=== PATIENT | male | born 1955 | race Caucasian/White ===

== ENCOUNTER → 2017-08-06 | Outpatient (CLI) | payer MEDICARE, OTHER ==
[2017-08-06 15:06] LABS: ANION GAP 8 MEQ/L (5-15); BICARBONATE 27.8 MEQ/L (21.0-32.0); BLOOD UREA NITROGEN 23 MG/DL (7-18); CALCIUM 8.5 MG/DL (8.5-10.1); CHLORIDE 100 MEQ/L (98-107); CREATININE 1.27 MG/DL (0.60-1.30); GLOMERULAR FILTRATION RATE 57 ML/MIN (>89); GLUCOSE,FASTING 129 MG/DL (74-99); POTASSIUM 4.3 MEQ/L (3.5-5.1); SODIUM (NA) 136 MEQ/L (136-145)
== END ==
LOC: CLAB 13:59
DX: N40.1 Benign prostatic hyperplasia with lower urinary tract symptoms (principal)
CPT/HCPCS: 36415; 80048; 84153

== ENCOUNTER → 2017-09-28 | Outpatient (CLI) | payer MEDICARE ==
[~2017-09-28] MED LIST: ACET-822 PO; ASPI81TA23 PO; LISI10TA3 PO
[2017-09-28 10:38] LABS: HEMATOCRIT 43.1 % (39.0-51.0); HEMOGLOBIN 15.3 GM/DL (13.0-17.0); MEAN CORPUSCULAR HEMOGLOBIN 34.7 PG (27.0-34.0); MEAN CORPUSCULAR HGB CONC 35.4 % (32.0-36.0); MEAN PLATELET VOLUME 7.6 FL (7.0-11.0); PLATELET COUNT 302 TH/MM3 (150-450); RED CELL DISTRIBUTION WIDTH 14.2 % (11.6-17.2); WHITE BLOOD COUNT 8.8 TH/MM3 (4.0-11.0)
[2017-09-28 10:47] LABS: PROTHROMBIN TIME - PATIENT 10.1 SEC (9.8-11.6)
== END ==
LOC: CLAB 10:07
PROVIDERS: ATTEND Urology
DX: D41.00 Neoplasm of uncertain behavior of unspecified kidney (principal)
CPT/HCPCS: 36415; 85027; 85610; 85730

== ENCOUNTER 2017-10-04 06:23 | Day surgery (SDC) | payer MEDICARE ==
[~2017-10-04] VITALS: Ht 180.3 cm; Wt 127.3 kg
[2017-10-04] VITALS (8 sets, daily range): BP systolic 105–144; BP diastolic 74–95; PULSE 75–83; RESP 18–20; TEMP 98–98.5; O2SAT 92–99
[2017-10-04] MEDS ORDERED: SODIUM CHLOR 0.9% 1000 ML IV SCH (06:45)
[2017-10-04] MEDS ORDERED: MIDAZOLAM HCL 2 MG/2 ML VIAL ONE ×2 (08:02→08:48)
--- NOTE | 2017-10-04 09:45 | PD.RAD ---
Post CT Procedure Prog Note Pre Procedure Diagnosis: (1) Left renal mass Post Procedure Diagnosis: (1) Left renal mass Procedure Date: Oct 04, 2017 Supervising Radiologist: Shant Hampton Estimated blood loss: none Anesthesia: Local, Conscious Sedation Plan of Activity Patient to Unit: ROPU Patient Condition: Good See PACS Report for procedural detail/treatment Biopsy Imaging Guidance: CT Side: Left Biopsy Procedure: Kidney Specimen: Core Biopsy Shant Hampton MD Oct 04, 2017 09:45
--- NOTE | 2017-10-04 10:17 | RADRPT ---
EXAM DATE/TIME: 10/04/2017 08:42 [facility] COMPARISON: No previous studies available for comparison. INDICATIONS : Left retroperitoneal mass. Hypermetabolic mass in the left renal fossa post previous left nephrectomy for renal cell carcinoma SEDATION TIME: 40 minutes BIOPSY SITE: Left renal fossa MEDICATION(S): 1.) 3.5 mg midazolam (Versed) IV 2.) 175 mcg fentanyl (Sublimaze) IV 1.) 18 gauge Temno core biopsy needle MEDICAL HISTORY : Renal cell carcinoma. SURGICAL HISTORY : Left nephrectomy. ENCOUNTER: Initial ACUITY: 1 day PAIN SCORE: 0/10 LOCATION: Left A total of one core specimen(s) were obtained and sent to the laboratory for pathologic evaluation. PROCEDURE: 1. CT guided renal biopsy. 2. Conscious sedation with continuous EKG and oximetry monitoring. 3. EKG and oximetry remained stable throughout the procedure. Prior to the procedure informed consent was obtained. Any appropriate prior imaging studies were rev iewed. Using automated exposure control and adjustment of the mA and/or kV according to patient size, radiat ion dose was kept as low as reasonably achievable to obtain optimal diagnostic quality images. DICOM format image data is available electronically for review and comparison. The site was prepped in a sterile fashion. Full sterile technique was used, including cap, mask, latricia rile gloves and gown and a large sterile sheet. Hand hygiene and 2% chlorhexidine and/or betadine/al cohol prep was utilized per protocol for cutaneous antisepsis. The skin and subcutaneous tissues wer e infiltrated with local anesthetic solution. With CT guidance the previously identified target was localized. Biopsy was performed using the presc ribed needle as above. Adequate hemostasis was obtained with compression at the puncture site. Follow-up CT scan reveals no hemorrhage. The patient tolerated the procedure well and there were no complications. The patient was returned to the Radiology Outpatient Unit in stable condition. CONCLUSION: Uncomplicated CT guided biopsy. Shant Hampton MD on October 04, 2017 at 10:12 Board Certified Radiologist. This report was verified electronically.
[2017-10-04 10:45] LABS: BASOPHIL % 0.6 % (0.0-2.0); EOSINOPHIL # 0.3 TH/MM3 (0-0.4); EOSINOPHIL % 4.1 % (0.0-4.0); HEMATOCRIT 44.6 % (39.0-51.0); LYMPH % 14.9 % (9.0-44.0); LYMPHOCYTE # 1.2 TH/MM3 (1.0-4.8); MEAN CELL VOLUME 98.1 FL (80.0-100.0); MEAN CORPUSCULAR HEMOGLOBIN 33.1 PG (27.0-34.0); MEAN CORPUSCULAR HGB CONC 33.7 % (32.0-36.0); MEAN PLATELET VOLUME 7.7 FL (7.0-11.0); MONO % 8.6 % (0.0-8.0); MONOCYTE # 0.7 TH/MM3 (0-0.9); NEUT % 71.8 % (16.0-70.0); PLATELET COUNT 298 TH/MM3 (150-450); RED BLOOD COUNT 4.54 MIL/MM3 (4.50-5.90); RED CELL DISTRIBUTION WIDTH 14.5 % (11.6-17.2); WHITE BLOOD COUNT 8.3 TH/MM3 (4.0-11.0)
[2017-10-04 12:15] LABS: AUTOMATED NEUTROPHIL # 5.8 TH/MM3 (1.8-7.7); BASOPHIL # 0.1 TH/MM3 (0-0.2); EOSINOPHIL # 0.3 TH/MM3 (0-0.4); EOSINOPHIL % 4.1 % (0.0-4.0); HEMATOCRIT 43.2 % (39.0-51.0); HEMOGLOBIN 14.7 GM/DL (13.0-17.0); LYMPH % 17.1 % (9.0-44.0); LYMPHOCYTE # 1.4 TH/MM3 (1.0-4.8); MEAN PLATELET VOLUME 7.4 FL (7.0-11.0); MONO % 7.2 % (0.0-8.0); MONOCYTE # 0.6 TH/MM3 (0-0.9); NEUT % 70.6 % (16.0-70.0); PLATELET COUNT 291 TH/MM3 (150-450); RED BLOOD COUNT 4.45 MIL/MM3 (4.50-5.90); WHITE BLOOD COUNT 8.2 TH/MM3 (4.0-11.0)
== END 2017-10-04 12:15 | disposition home or self-care (01) ==
LOC: HRAD 06:23 → HRIP 06:23 → HRAD 12:15
PROVIDERS: ATTEND Urology
DX: R19.09 Other intra-abdominal and pelvic swelling, mass and lump (principal); Z85.528 Personal history of other malignant neoplasm of kidney
CPT/HCPCS: 49180; 77012; 85025; 88305; 88341; 88342; 99152; 99153; J2250; J3010; J7030

== ENCOUNTER → 2017-11-09 | Outpatient (CLI) | payer MEDICARE, MEDICAID ==
[~2017-11-09] MED LIST changes: +PERC5TAB12 PO
[2017-11-09 10:14] LABS: PROTHROMBIN TIME - PATIENT 10.3 SEC (9.8-11.6)
[2017-11-09 10:16] LABS: BASOPHIL # 0.1 TH/MM3 (0-0.2); BASOPHIL % 0.8 % (0.0-2.0); EOSINOPHIL # 0.2 TH/MM3 (0-0.4); EOSINOPHIL % 3.3 % (0.0-4.0); HEMATOCRIT 43.8 % (39.0-51.0); HEMOGLOBIN 14.8 GM/DL (13.0-17.0); LYMPH % 19.4 % (9.0-44.0); LYMPHOCYTE # 1.4 TH/MM3 (1.0-4.8); MEAN CELL VOLUME 97.4 FL (80.0-100.0); MEAN CORPUSCULAR HEMOGLOBIN 32.8 PG (27.0-34.0); MEAN CORPUSCULAR HGB CONC 33.7 % (32.0-36.0); MEAN PLATELET VOLUME 7.9 FL (7.0-11.0); MONO % 7.8 % (0.0-8.0); MONOCYTE # 0.6 TH/MM3 (0-0.9); NEUT % 68.7 % (16.0-70.0); PLATELET COUNT 308 TH/MM3 (150-450); RED CELL DISTRIBUTION WIDTH 13.2 % (11.6-17.2); WHITE BLOOD COUNT 7.2 TH/MM3 (4.0-11.0)
[2017-11-09 10:29] LABS: ALBUMIN 3.5 GM/DL (3.4-5.0); AST (GOT) 43 U/L (15-37); BICARBONATE 23.8 MEQ/L (21.0-32.0); BLOOD UREA NITROGEN 18 MG/DL (7-18); CALCIUM 8.9 MG/DL (8.5-10.1); CHLORIDE 103 MEQ/L (98-107); CREATININE 1.26 MG/DL (0.60-1.30); GLOMERULAR FILTRATION RATE 58 ML/MIN (>89); GLUCOSE,FASTING 92 MG/DL (74-99); SODIUM (NA) 137 MEQ/L (136-145)
[2017-11-09 10:33] LABS: ALKALINE PHOSPHATASE 94 U/L (45-117); ALT (GPT) 72 U/L (12-78); TOTAL BILIRUBIN ADULT 0.4 MG/DL (0.2-1.0); TOTAL PROTEIN 7.4 GM/DL (6.4-8.2)
--- NOTE | 2017-11-09 11:57 | EKG ---
Date Performed: 11/09/2017 Time Performed: 08:55:51 PTAGE: 62 years EKG: Sinus rhythm NORMAL ECG NO PREVIOUS TRACING DOCTOR: Braulio Graff Interpretating Date/Time 11/09/2017 11:56:22
== END ==
LOC: CPRE 08:39
PROVIDERS: ATTEND Urology
DX: Z01.812 Encounter for preprocedural laboratory examination (principal); Z01.810 Encounter for preprocedural cardiovascular examination; C64.9 Malignant neoplasm of unspecified kidney, except renal pelvis; D41.00 Neoplasm of uncertain behavior of unspecified kidney
CPT/HCPCS: 36415; 80053; 85025; 85610; 85730; 93005

== ENCOUNTER 2017-11-16 05:56 | Inpatient (IN) | payer MEDICARE, MEDICAID ==
[~2017-11-16] VITALS: Ht 180.3 cm; Wt 123.4 kg
[~2017-11-16 05:56] MED LIST changes: -PERC5TAB12 PO
[2017-11-16] MEDS ORDERED: SODIUM CHLORID 0.9% 500 ML IV PRN (06:30)
[2017-11-16] MEDS ORDERED: POVIDONE IODINE 5% (ANTISEPSIS KIT) 4 APPLICATIONS EACH NARE PRN (06:30)
[2017-11-16] MEDS ORDERED: LACTATED RINGER'S 1000 ML IV PRN (06:30)
[2017-11-16] MEDS ORDERED: ceFAZolin 2 GM/DEX PREMIX 50 ML IV SCH (06:30)
[2017-11-16] MEDS ORDERED: CHLORHEXIDINE GLUCONATE 2 % 1 PACK (2 CLOTHS) TOPICAL PRN (06:30)
[2017-11-16] MEDS ORDERED: METOPROLOL TARTRATE 25 MG TAB PO PRN (06:30)
[2017-11-16] MEDS ORDERED: FUROSEMIDE 40 MG/4 ML VIAL ONE (07:47)
--- NOTE | 2017-11-16 11:42 | PD.OP ---
Operative Report Date of Surgery: November 16, 2017 Preoperative Diagnosis: (1) Retroperitoneal mass Postoperative Diagnosis: (1) Renal carcinoma (2) Retroperitoneal mass Procedure: Robot assisted laparoscopic resection of retroperitoneal masses Anesthesia: General Surgeon: Mateo Alexis Irrigation Tax Assessor Collector(s): Jose E Rome Operation and Findings: Indication for procedure: Case of a pleasant 62-year-old gentleman with history left renal cell carcinoma status post hand-assisted laparoscopic left nephrectomy in April 2015. Recent CT/PET scan was consistent with recurrent disease involving the left renal fossa. Patient presents today to undergo robot -assisted laparoscopic resection of this mass. Operative procedure in detail: Patient was brought to the operating room suite and placed supine on the OR table. He was then placed under general anesthesia. He was then repositioned in the right lateral recumbent position and held in place with a beanbag. The surgical table was flexed to separate the thorax from the bony pelvis prior to inflating the beanbag. All pressure points were then adequately padded. He was then prepped and draped in normal sterile fashion. After an appropriate timeout was undertaken I proceeded with creating a pneumoperitoneum utilizing the Veress needle in standard fashion. The pneumoperitoneum was inflated to 15 mmHg and the Veress needle was removed. The camera port was next placed utilizing the visual obturator. Careful inspection demonstrated multiple adhesions. I then proceeded with passing 1 of the robotic arm ports under direct vision. The laparoscopic scissors were next utilized to take down most of these adhesions under direct vision. The second robotic arm port and assistant facility manager port were then placed under direct vision without difficulty. The robot was next docked by my associate Dr. Rome and I repositioned myself over at the robotic console. I then proceeded to mobilize the left colon and with mobilization the patient was noted to have multiple mass lesions measuring up to 2 cm in size. 2 of these lesions were excised and sent off to pathology utilizing the Endo Catch specimen bag. A frozen section was performed and consistent with metastatic renal cell carcinoma. At this point in time I stopped the ongoing inspection of the retroperitoneum for additional lesions and the pneumoperitoneum was dropped down to 5 mmHg to inspect active bleeding. No active bleeding was noted. A 10 mm LIDIA drain was then placed under direct vision via 1 of the robotic arm ports and sutured into place. The robot was then undocked and after re-scrubbing I repositioned myself over at the bedside to close the remaining ports. The remaining robotic arm port was reapproximated with surgical shruti and the assistant facility manager and camera ports were reapproximated with 2-0 Vicryl for fascial reapproximation and the skin edges reapproximated with the skin stapling device. Sterile dressings were placed at all wound sites. The patient tolerated the procedure without complications and was transferred to the PACU in satisfactory condition. Mateo Alexis MD November 16, 2017 11:42
[2017-11-16] MEDS: LACTATED RINGER'S 1000 ML INJ 1,000 ML IV SCH ×2 (11:51→20:54)
[2017-11-16] MEDS ORDERED: PHENYLEPHRINE HCL 10 MG/ML VIAL IV ONE (12:00)
[2017-11-16] MEDS ORDERED: ONDANSETRON HCL 4 MG/2 ML VIAL IV ONE (12:00)
[2017-11-16] MEDS ORDERED: MORPHINE SULFATE 4 MG/ML INJ IV PUSH PRN (12:00)
[2017-11-16] MEDS ORDERED: LIDOCAINE HCL 1% PF 5 ML SYRINGE OTHER ONE (12:00)
[2017-11-16] MEDS ORDERED: GLYCOPYRROLATE 1 MG/5 ML SYRINGE IV PUSH ONE (12:00)
[2017-11-16] MEDS ORDERED: SODIUM CHLORIDE 0.9% FLUSH 10 ML FLUSH IV FLUSH PRN (12:00)
[2017-11-16] MEDS ORDERED: PHENYLEPH/NS 1000 MCG/10 ML SYR IV ONE (12:00)
[2017-11-16] MEDS ORDERED: DEXAMETHASONE SOD PHOS 4 MG/ML VIAL IV ONE (12:00)
[2017-11-16] MEDS ORDERED: LACTATED RINGER'S 1000 ML INJ 1,000 ML IV ONE (12:00)
[2017-11-16] MEDS ORDERED: ePHEDrine/NS 25 MG/5 ML SYRINGE IV ONE (12:00)
[2017-11-16] MEDS ORDERED: PROPOFOL 200 MG/20 ML AMP IV ONE (12:00)
[2017-11-16] MEDS ORDERED: ONDANSETRON HCL 4 MG/2 ML VIAL IV PUSH PRN (12:00)
[2017-11-16] MEDS ORDERED: NEOSTIGMINE 5 MG/5 ML SYRINGE IV PUSH ONE (12:00)
[2017-11-16] MEDS ORDERED: ROCURONIUM INJ 50 MG/5 ML SYRINGE IV PUSH ONE (12:00)
[2017-11-16] MEDS ORDERED: VECURONIUM BROMIDE 20 MG VIAL IV ONE (12:00)
[2017-11-16] MEDS ORDERED: Post-op Orders (for Pharmacy) XX ONE (12:00)
[2017-11-16] MEDS ORDERED: MIDAZOLAM HCL 2 MG/2 ML VIAL ONE (12:05)
[2017-11-16] MEDS ORDERED: DO NOT ADM ANY ANTICOAGULANT DRUGS PRN (12:05)
--- NOTE | 2017-11-16 13:07 | RADRPT ---
EXAM DATE/TIME: 11/16/2017 13:41 [facility] COMPARISON: CHEST SINGLE AP, May 15, 2015, 19:31. INDICATIONS : Post central line placement MEDICAL HISTORY : Renal cell carcinoma. SURGICAL HISTORY : Nephrectomy, left. ENCOUNTER: Subsequent ACUITY: 1 day PAIN SCORE: Non-responsive. LOCATION: Right chest FINDINGS: A single view of the chest demonstrates the lungs to be symmetrically aerated without evidence of mas s, infiltrate or effusion. There is atelectasis at the right lung base. The cardiomediastinal contou rs are unremarkable. Osseous structures are intact. There is a right internal jugular central venous line with the tip projected over the superior vena cava. There is no evidence of pneumothorax. CONCLUSION: 1. Right internal jugular central venous line with no pneumothorax. 2. Atelectasis at right lung base. Leonel Colon MD on November 16, 2017 at 13:05 Board Certified Radiologist. This report was verified electronically.
[2017-11-16] MEDS: MORPHINE SULFATE 4 MG/ML INJ IV PUSH PRN ×4 (13:45→20:55)
[2017-11-16 16:00] VITALS: BP 117/65; PULSE 75; RESP 20; TEMP 98.3; O2SAT 96
[2017-11-16 16:11] VITALS: O2SAT 95
[2017-11-16 20:00] VITALS: BP 122/70; PULSE 80; RESP 18; TEMP 97.9; O2SAT 95
[2017-11-16] MEDS: SODIUM CHLORIDE 0.9% FLUSH 10 ML FLUSH IV FLUSH SCH (20:54)
[2017-11-17] VITALS: BP 123/64; PULSE 79; RESP 18; TEMP 99.6; O2SAT 93
[2017-11-17] MEDS: MORPHINE SULFATE 4 MG/ML INJ IV PUSH PRN (04:07)
[2017-11-17 04:41] LABS: HEMATOCRIT 38.1 % (39.0-51.0)
[2017-11-17 05:15] LABS: BICARBONATE 30.2 MEQ/L (21.0-32.0); CALCIUM 8.2 MG/DL (8.5-10.1); CREATININE 1.15 MG/DL (0.60-1.30)
[2017-11-17] MEDS: LACTATED RINGER'S 1000 ML INJ 1,000 ML IV SCH ×2 (05:39→11:51)
[2017-11-17] MEDS: oxyCODONE/ACETAMINOPHEN 5 MG/325 MG TAB PO PRN ×4 (05:54→23:46)
[2017-11-17 08:00] VITALS: BP 118/58; PULSE 67; RESP 17; TEMP 98.2; O2SAT 94
[2017-11-17] MEDS: SODIUM CHLORIDE 0.9% FLUSH 10 ML FLUSH IV FLUSH SCH ×2 (08:16→19:55)
[2017-11-17] MEDS: LISINOPRIL 10 MG TAB PO SCH (08:17)
[2017-11-17 12:00] VITALS: BP 142/70; PULSE 86; RESP 18; TEMP 97.9; O2SAT 95
--- NOTE | 2017-11-17 12:36 | HHI.PR ---
Subjective Patient symptoms today Postoperative day #1 Pain well managed Has been out of bed and voiding well Reports being hungry No bowel movement this morning Objective Vital Signs Vital Signs Date Time Temp Pulse Resp B/P (MAP) Pulse Ox O2 Delivery O2 Flow Rate FiO2 11/17/17 08:15 94 Room Air 11/17/17 08:00 98.2 67 17 118/58 (78) 94 11/17/17 03:37 Room Air 11/17/17 00:00 99.6 79 18 123/64 (83) 93 11/16/17 20:00 97.9 80 18 122/70 (87) 95 11/16/17 16:11 95 Nasal Cannula 2.00 11/16/17 16:00 98.3 75 20 117/65 (82) 96 11/16/17 13:00 58 14 112/69 (83) 94 Nasal Cannula 3 11/16/17 12:45 56 14 114/69 (84) 95 Nasal Cannula 3 Intake & Output 11/17/17 11/17/17 06:59 18:59 Intake Total 100 ml Output Total 2250 ml Balance -2150 ml Intake IV Total 100 ml Output Urine Total 2200 ml Drainage Total 50 ml Result Diagram: 11/17/17 0415 11/17/17 0415 Objective Remarks Abdomen soft, nondistended, nontender Dressings intact LIDIA drain in place Extremities well-perfused, nontender Medications and IVs Current Medications Medications (Trade) Dose Ordered Sig/Michael Route Start Time Stop Time Status Last Admin Lactated Ringer's 1,000 ml @ 30 mls/hr Q24H PRN IV 11/16/17 06:30 11/19/17 06:29 11/16/17 07:00 Sodium Chloride 500 ml @ 30 mls/hr [id number] PRN IV 11/16/17 06:30 11/19/17 06:29 (Lopressor) 25 mg GENERAL UTILITY MACHINE OPERATOR PRN PO 11/16/17 06:30 11/19/17 06:29 (Betadine 5% Antisepsis Kit) 1 applic GENERAL UTILITY MACHINE OPERATOR PRN EACH NARE 11/16/17 06:30 11/19/17 06:29 11/16/17 06:45 (Chlorhexidine 2% Cloth) 3 pack GENERAL UTILITY MACHINE OPERATOR PRN TOPICAL 11/16/17 06:30 11/19/17 06:29 11/16/17 06:45 Lactated Ringer's 1,000 ml @ 125 mls/hr Q8H IV 11/16/17 11:51 11/17/17 05:39 (NS Flush) 2 ml UNSCH PRN IV FLUSH 11/16/17 12:00 (NS Flush) 2 ml BID IV FLUSH 11/16/17 21:00 11/16/17 20:54 (Percocet 5-325 Mg) 1 tab Q4H PRN PO 11/16/17 12:00 11/17/17 05:54 (Percocet 5-325 Mg) 2 tab Q4H PRN PO 11/16/17 12:00 (Morphine Inj) 1 mg Q2H PRN IV PUSH 11/16/17 12:00 (Morphine Inj) 2 mg Q2H PRN IV PUSH 11/16/17 12:00 11/17/17 04:07 (Zofran Inj) 4 mg Q6H PRN IV PUSH 11/16/17 12:00 (Prinivil) 10 mg DAILY PO 11/17/17 09:00 11/17/17 08:17 Assessment and Plan Assessment and Plan Urologic impression: 1. Status post robot-assisted laparoscopic removal of left retroperitoneal masses confirmed to be recurrent renal cell cancer 2. Excellent postoperative course Plan: 1. Advance diet 2. Encourage out of bed 3. Likely removal of LIDIA drain tomorrow 4. Anticipate discharge home tomorrow Mateo Alexis MD November 17, 2017 12:36
[2017-11-17 16:00] VITALS: BP 143/76; PULSE 88; RESP 17; TEMP 98; O2SAT 95
[2017-11-17 20:00] VITALS: BP 109/65; PULSE 87; RESP 14; TEMP 98.6; O2SAT 97
[2017-11-18] VITALS: BP 117/67; PULSE 80; RESP 15; TEMP 98.1; O2SAT 95
[2017-11-18 00:46] VITALS: RESP 16
[2017-11-18] MEDS: oxyCODONE/ACETAMINOPHEN 5 MG/325 MG TAB PO PRN ×2 (06:21→12:14)
[2017-11-18] MEDS: SODIUM CHLORIDE 0.9% FLUSH 10 ML FLUSH IV FLUSH SCH (10:00)
[2017-11-18] MEDS: LISINOPRIL 10 MG TAB PO SCH (10:03)
--- NOTE | 2017-11-18 11:51 | HHI.DS ---
Discharge Summary Admission Date November 16, 2017 at 12:22 Discharge Date: November 18, 2017 Admitting Diagnosis Left retroperitoneal mass Procedures Robot-assisted laparoscopic excision of multiple left retroperitoneal masses Brief History 62-year-old gentleman with history left-sided renal CA who status post a left radical nephrectomy in the past who was recently discovered to have a mass lesion involving the left retroperitoneum. Patient was admitted for excision of this mass. Please refer to admission history and physical for additional history and pertinent physical findings. CBC/BMP: 11/17/17 0415 11/17/17 0415 Significant Findings Laboratory Tests Test 11/17/17 04:15 Hematocrit 38.1 % (39.0-51.0) Calcium Level 8.2 MG/DL (8.5-10.1) Estimat Glomerular Filtration Rate 64 ML/MIN (>89) PE at Discharge Abdomen soft, nondistended, nontender Wound sites clean and dry Extremities well-perfused with diminished range of motion of the left lower extremity likely related to psoas muscle irritation. Hospital Course Patient was admitted and underwent a robot-assisted laparoscopic excision of multiple left retroperitoneal masses without complications. Pathology demonstrated these lesions to be recurrent renal cell cancer. Postoperatively the patient had excellent course and by postop day #2 was ambulating well, tolerating oral intake well and passing flatus. The patient's only complaint was limited range of motion of the left lower extremity likely related to psoas muscle irritation. Patient was able to ambulate well. A decision was thus made to discharge the patient home with instructions to follow-up at my office in approximately 1 week to have a surgical shruti removed. Patient will require further care by oncology and my office will make arrangements for this. Pt Condition on Discharge: Good Discharge Disposition: Discharge Home Discharge Instructions DIET: Follow Instructions for: As Tolerated, No Restrictions Activities you can perform: Shower Only-No Bath, See Additionl Instruction Activities to avoid: Strenuous Activity Mateo Alexis MD November 18, 2017 11:51
[2017-11-18] MEDS ORDERED: PERC5TAB12 PO (11:52)
== END 2017-11-18 12:19 | disposition home or self-care (01) | DRG 358 ==
LOC: HSDC 05:56 → HSDI 12:22 → N07A 13:31
PROVIDERS: ADMIT Urology; ATTEND Urology
PROC: 8E0W4CZ Robotic Assisted Procedure of Trunk Region, Percutaneous Endoscopic Approach (ICD-10-PCS; 2017-11-16)
PROC: 0WBH4ZZ Excision of Retroperitoneum, Percutaneous Endoscopic Approach (ICD-10-PCS; principal; 2017-11-16 08:07)
DX: C78.6 Secondary malignant neoplasm of retroperitoneum and peritoneum (principal); I10 Essential (primary) hypertension; N40.0 Benign prostatic hyperplasia without lower urinary tract symptoms; Z85.528 Personal history of other malignant neoplasm of kidney
CPT/HCPCS: 71045; 80048; 85014; 85018; 86850; 86900; 86901; 86920; 88305; 88307; 88331; 94150; J0690; J1100; J1940; J2250; J2270; J2370; J2405; J2710; J3010; J7120